=== PATIENT | male | born 1955 | race Caucasian/White ===

== ENCOUNTER 2018-04-06 15:11 | Emergency (ER) | payer OTHER ==
[2018-04-06] MEDS: ATENOLOL 50 MG TAB PO (16:06)
[2018-04-06 16:09] LABS: ANION GAP 15 (8-16); BLOOD UREA NITROGEN 16 mg/dl (7-20); CALCIUM 9.2 mg/dl (8.4-10.2); CARBON DIOXIDE 24 mmol/L (21-31); CHLORIDE 102 mmol/L (97-110); CREATININE 1.16 mg/dl (0.61-1.24); GLUCOSE 369 mg/dl (70-220); POTASSIUM 4.3 mmol/L (3.5-5.1); SODIUM 137 mmol/L (135-144)
[2018-04-06 16:22] LABS: TROPONIN-I < 0.010 ng/ml (0.000-0.120)
[2018-04-06] MEDS ORDERED: ACETAMINOPHEN 500 MG TAB (17:07)
== END 2018-04-06 17:38 | disposition home or self-care (01) ==
LOC: E/R 15:11
DX: I47.1 Supraventricular tachycardia (principal); I10 Essential (primary) hypertension; I25.10 Atherosclerotic heart disease of native coronary artery without angina pectoris; F17.210 Nicotine dependence, cigarettes, uncomplicated; Z79.82 Long term (current) use of aspirin; Z98.61 Coronary angioplasty status
CPT/HCPCS: 80048; 84484; 93005; 99284-25

== ENCOUNTER 2018-04-06 23:12 | Observation (INO) | payer OTHER ==
[2018-04-06 23:59] LABS: ADD MAN DIFF? NO
[2018-04-07] LABS: WHITE BLOOD COUNT 9.3 10^3/ul (4.8-10.8)
[2018-04-07] LABS: BASOPHILS % 0.3 % (0.0-2.0); EOSINOPHILS # 0.1 10^3/ul (0.0-0.5); EOSINOPHILS % 0.6 % (0.0-7.0); HEMATOCRIT 38.6 % (42.0-52.0); HEMOGLOBIN 13.5 g/dl (14.0-18.0); LYMPHOCYTES # 3.3 10^3/ul (0.8-2.9); LYMPHOCYTES % 35.8 % (15.0-51.0); MEAN CORPUSCULAR HEMOGLOBIN 31.3 pg (29.0-33.0); MEAN CORPUSCULAR VOLUME 89.4 fl (82.0-101.0); MEAN PLATELET VOLUME 10.4 fl (7.4-10.4); MONOCYTE # 0.6 10^3/ul (0.3-0.9); MONOCYTES % 6.6 % (0.0-11.0); NEUTROPHIL # 5.2 10^3/ul (1.6-7.5); NEUTROPHILS % 56.5 % (39.0-77.0); PLATELET COUNT 211 10^3/UL (140-415); RED BLOOD COUNT 4.32 10^6/ul (4.70-6.10)
[2018-04-07] MEDS: SOD CHLORIDE 0.9% 500 ML IV (00:04)
[2018-04-07 00:18] LABS: ANION GAP 13 (8-16); BLOOD UREA NITROGEN 16 mg/dl (7-20); CALCIUM 9.3 mg/dl (8.4-10.2); CARBON DIOXIDE 23 mmol/L (21-31); CHLORIDE 107 mmol/L (97-110); CREATININE 1.04 mg/dl (0.61-1.24); GLUCOSE 159 mg/dl (70-220); POTASSIUM 3.9 mmol/L (3.5-5.1); SODIUM 139 mmol/L (135-144)
[2018-04-07 00:27] LABS: B-TYPE NATRIURETIC PEPTIDE 531 PG/ML (0-125)
[2018-04-07 00:58] LABS: TROPONIN-I 0.114 ng/ml (0.000-0.120)
[2018-04-07] MEDS ORDERED: GLUCOSE GEL 15 GRAM TUBE PO ×2 (04:30)
[2018-04-07] MEDS ORDERED: GLUCAGON 1 MG INJ IM (04:30)
[2018-04-07] MEDS ORDERED: DEXTROSE 50% 50 ML SYRINGE IV ×2 (04:30)
[2018-04-07] MEDS ORDERED: GLUCOSE GEL 15 GRAM TUBE BUCCAL (04:30)
[2018-04-07 05:29] LABS: ADD MAN DIFF? NO
[2018-04-07 05:36] LABS: WHITE BLOOD COUNT 9.4 10^3/ul (4.8-10.8)
[2018-04-07 05:36] LABS: BASOPHILS % 0.4 % (0.0-2.0); EOSINOPHILS # 0.1 10^3/ul (0.0-0.5); HEMATOCRIT 39.9 % (42.0-52.0); HEMOGLOBIN 13.6 g/dl (14.0-18.0); LYMPHOCYTES % 43.1 % (15.0-51.0); MEAN CORPUSCULAR HEMOGLOBIN 30.5 pg (29.0-33.0); MEAN CORPUSCULAR HGB CONC 34.1 g/dl (32.0-37.0); MEAN CORPUSCULAR VOLUME 89.5 fl (82.0-101.0); MEAN PLATELET VOLUME 10.8 fl (7.4-10.4); MONOCYTE # 0.6 10^3/ul (0.3-0.9); MONOCYTES % 6.2 % (0.0-11.0); NEUTROPHIL # 4.6 10^3/ul (1.6-7.5); NEUTROPHILS % 49.2 % (39.0-77.0); PLATELET COUNT 202 10^3/UL (140-415); RED BLOOD COUNT 4.46 10^6/ul (4.70-6.10); RED CELL DISTRIBUTION WIDTH 12.4 % (11.5-14.5)
[2018-04-07 06:29] LABS: ANION GAP 15 (8-16); BLOOD UREA NITROGEN 16 mg/dl (7-20); CALCIUM 9.1 mg/dl (8.4-10.2); CARBON DIOXIDE 26 mmol/L (21-31); CHLORIDE 106 mmol/L (97-110); CREATININE 1.16 mg/dl (0.61-1.24); GLUCOSE 152 mg/dl (70-220); POTASSIUM 4.4 mmol/L (3.5-5.1); SODIUM 143 mmol/L (135-144)
[2018-04-07] MEDS: INSULIN ASPART [NOVOLOG] 3 ML PEN SC ×4 (07:45→21:00)
[2018-04-07] MEDS: FENOFIBRATE 145 MG TAB PO (08:22)
[2018-04-07] MEDS: metFORMIN 500 MG TAB PO ×2 (08:22→17:05)
[2018-04-07] MEDS: ATENOLOL 25 MG TAB PO ×2 (08:22→20:51)
[2018-04-07] MEDS: ASPIRIN 81 MG TAB PO (08:22)
[2018-04-07] MEDS: AMLODIPINE 5 MG TAB PO (08:22)
[2018-04-07] MEDS: FUROSEMIDE 20 MG INJ IV (17:06)
[2018-04-07 19:31] LABS: CREATINE KINASE 97 IU/L (23-200)
[2018-04-07 19:45] LABS: CK INDEX 0.8; CK-MB 0.78 ng/ml (0.0-2.4); TROPONIN-I 0.118 ng/ml (0.000-0.120)
[2018-04-07] MEDS: ATORVASTATIN 20 MG TAB PO (20:49)
[2018-04-08] MEDS: ACCUCHECK AT 2AM (Patients on SS coverage) XX (02:00)
[2018-04-08] MEDS: INSULIN ASPART [NOVOLOG] 3 ML PEN SC ×2 (08:03→11:49)
[2018-04-08] MEDS: AMLODIPINE 2.5 MG TAB PO (08:28)
[2018-04-08] MEDS: ASPIRIN 81 MG TAB PO (08:29)
[2018-04-08] MEDS: ATENOLOL 25 MG TAB PO (08:29)
[2018-04-08] MEDS: FENOFIBRATE 145 MG TAB PO (08:29)
[2018-04-08] MEDS: metFORMIN 500 MG TAB PO (08:30)
== END 2018-04-08 14:45 | disposition home or self-care (01) ==
LOC: E/R 23:12 → 6WM 04-07 01:04
DX: I47.1 Supraventricular tachycardia (principal); I10 Essential (primary) hypertension; E78.5 Hyperlipidemia, unspecified; I25.10 Atherosclerotic heart disease of native coronary artery without angina pectoris; E11.9 Type 2 diabetes mellitus without complications; F17.200 Nicotine dependence, unspecified, uncomplicated; D64.9 Anemia, unspecified; Z95.5 Presence of coronary angioplasty implant and graft; Z79.84 Long term (current) use of oral hypoglycemic drugs
CPT/HCPCS: 36415; 71045; 80048; 82550; 82553; 82962; 83036; 83880; 84443; 84484; 85025; 93005; 93306; 99285-25; G0378